=== PATIENT | male | born 1995 | race Two or more races ===

== ENCOUNTER 2024-12-25 04:20 | Emergency (ER) | payer SELFPAY ==
[2024-12-25 04:22] VITALS: BP 121/78; PULSE 100; RESP 18; TEMP 36.9; O2SAT 97; BMI 30.5
--- NOTE | 2024-12-25 04:29 | XR_ITS ---
Examination: Knee, right , 3 views Technique: Knee AP, lateral, oblique 3 views Date and time of exam: December 25, 2024 0457 hours INDICATIONS: Patient fell today with injury to the knee, knee pain. FINDINGS: No acute fracture. No dislocation. No foreign body. IMPRESSION: No acute fracture.
--- NOTE | 2024-12-25 05:14 | PD.EDLOWEX ---
Lower Extremity Injury RME/HPI General Chief Complaint: Extremity Injury, Lower Stated Complaint: R KNEE INJURY Time Seen by Provider: 12/25/24 04:48 Arrival date/time: 12/25/24 04:20 29M with no significant PMH presents to ED with R knee pain after he twisted it and fell on it. Limitations: no limitations Related Data Home Medications ?Medication ?Instructions ?Recorded ?Confirmed No Known Home Medications 12/12/22 12/12/22 Allergies Allergy/AdvReac Type Severity Reaction Status Date / Time No Known Allergies Allergy Verified 12/25/24 04:24 Review of Systems Review of Systems Systems Reviewed: All systems reviewed, normal except as documented Constitutional Constitutional: Reports system reviewed and no additional complaints, except as documented, Denies fever(s) and Denies headache(s) ENT Ears, Nose, Mouth, and Throat: Denies disequilibrium and Denies headache(s) Cardiovascular Cardiovascular: Reports system reviewed and no additional complaints, except as documented, Denies chest pain and Denies dyspnea Respiratory Respiratory: Reports system reviewed and no additional complaints, except as documented, Denies cough and Denies dyspnea Gastrointestinal Gastrointestinal: Reports system reviewed and no additional complaints, except as documented, Denies abdominal pain, Denies nausea and Denies vomiting Musculoskeletal Musculoskeletal: Reports as per HPI and Reports arthralgias Neurologic Neurologic: Reports system reviewed and no additional complaints, except as documented, Denies confusion, Denies disequilibrium and Denies headache(s) Psychiatric Psychiatric: Denies confusion Past Medical History Past Medical History CARDIAC: Negative Congestive Heart Failure RESPIRATORY: Negative Chronic Obstructive Pulmonary Disease (COPD) GENITOURINARY: Negative Renal Disease ENDOCRINE: Negative Diabetes Mellitus Type 1 or Diabetes Mellitus Type 2 PSYCHO/SOCIAL: Positive Recreational Drug Use Social History SMOKING STATUS: Current every day smoker ED Exam General Limitations: Present no limitations General appearance: Present alert and in no apparent distress Head Head exam: Present atraumatic Eye Eye exam: Present normal appearance, PERRL and EOMI ENT ENT exam: Present normal exam, normal oropharynx and mucous membranes moist Neck Neck exam: Present normal inspection, full ROM and trachea midline Chest Chest inspection: Present normal inspection and symmetric chest wall rise Respiratory Respiratory exam: Present normal lung sounds bilaterally Cardiovascular Cardiovascular exam: Present regular rate, normal rhythm and normal heart sounds Abdominal Exam Abdominal exam: Present soft and normal bowel sounds Extremities Exam Extremities exam: Present full ROM Expanded Lower Extremity Exam Knee exam: Present full ROM, tenderness (mild) and abrasion (mild) Back Exam Back exam: Present normal inspection and full ROM Neurological Exam Neurological exam: Present alert, oriented X3 and CN II-XII intact Psychiatric Psychiatric exam: Present normal affect and normal mood Skin Skin exam: Present warm, dry, intact and normal color Course Quality Measures none Orders Category Date Time Status Crutches .NOW Care 12/25/24 04:32 Active jared wrap [Splint / Immobilizer] STAT Care 12/25/24 05:10 Active XR knee RT 3V Stat Exams 12/25/24 04:29 Taken Vital Signs Vital signs: Vital Signs Temperature 98.4 F 12/25/24 04:22 Pulse Rate 100 12/25/24 04:22 Respiratory Rate 18 12/25/24 04:22 Blood Pressure 121/78 12/25/24 04:22 Pulse Oximetry (%) 97 12/25/24 04:22 Oxygen Delivery Method Room Air 12/25/24 04:22 O2 at 97% on RA and WNLs Extremity Injury, Lower MDM Narrative MDM Narrative:: 29M with no significant PMH presents to ED with R knee pain after he twisted it and fell on it. Physical exam reveals mild R knee tenderness and skin abrasion. ROM intac. Gait intact. Patient is afebrile, calm, and alert. Wet XR read no gross fx pending official report. 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 Patient data External records reviewed:: [facility] previous records Clinical information provided by:: patient Social determinants that could affect healthcare access:: none Patient has the following chronic illnesses:: none How is presenting disease/condition affected by chronic disease/condition?: no chronic disease Evaluation data The following diagnostics were reviewed and interpreted by me:: radiology exam(s) Lab and/or radiology exams considered but not ordered:: ordered Interpretation Summary: above Medications / Prescriptions Medications or Prescriptions considered but not ordered:: not ordered Medication administrations:: n/a Consultations Consultation(s) initiated? (list below): No Diagnosis Extremity Injury, Lower Differential Diagnosis: ankle sprain and strain, acute internal derangement of knee, fracture of femur, fracture of hip, puncture wound of foot, fracture of toe and ankle fracture Most likely diagnosis given after review of the tests above:: internal derangement of knee Admission Indicated Admission indicated?: not indicated Admission Request Was there a request for admission?: No Disposition Plan Disposition Plan: Discharge Discharge Attestation Discharge Attestation: The patient and all family members were given an opportunity to ask questions and understood the discharge instructions. Discharge instructions specifically effects, indications for sooner follow up or return to the emergency department, and the expected course of current diagnosis. Patient condition: Stable Discharge Plan Plan Patient Disposition: HOME (Self Care) Discharge Disposition comment: Stable Prescriptions/Referrals Prescriptions/Med Rec: No Action No Known Home Medications Problem List Clinical Impression: Acute internal derangement of knee Patient/Caregiver Discharge Instructions Education Materials: How Your Knee Works Additional Instructions: Please follow-up with PCP within 24-48 hours and return immediately if symptoms worsen. If problem persists, recommend outpatient PT and/or MRI follow-up. In the meantime, rest, use ice/heat, and/or compression. Print Language: Azeri Stand Alone Forms: Patient Portal Info Letter TYLER/ROSMERY Supervising Physician TYLER/ROSMERY Supervising Physician: Dr. Grier
== END 2024-12-25 05:14 | disposition home or self-care (01) ==
LOC: SERX 05:45
PROVIDERS: Emergency Provider Emergency Medicine
DX: M23.91 Unspecified internal derangement of right knee (principal)
CPT/HCPCS: 73562; 99284